=== PATIENT | male | born 2000 | race Caucasian/White ===

== ENCOUNTER 2024-06-10 00:50 | Inpatient (IN) | payer SELFPAY ==
[2024-06-10] VITALS (22 sets, daily range): BP systolic 92–156; BP diastolic 47–102; PULSE 76–140; RESP 14–40; TEMP 36–36.8; O2SAT 94–100; BMI 34.6; BMI 34.2
--- NOTE | 2024-06-10 01:00 | EDS_ITS ---
HPI History of Present Illness Chief Complaint: ETOH Intox [facility] Medical History (Updated 06/10/24 @ 01:09 by Alvina Ferguson) Depression Dyslexia ADHD Anxiety Home Medications ?Medication ?Instructions ?Recorded ?Last Taken ?Type NK 06/10/24 Unknown History Allergy/AdvReac Type Severity Reaction Status Date / Time No Known Allergies Allergy Verified 06/10/24 00:56 Social History Smoking Status: Current some day smoker tobacco type: e-cigarettes EXAM Physical Exam Const Vital Signs: 06/10/24 00:51 06/10/24 02:30 Temperature 97.8 F Temperature Source Oral Pulse Rate 126 H 140 H Respiratory Rate 40 H 19 H Blood Pressure 156/98 H 126/64 H Blood Pressure Mean 117 84 Pulse Ox 96 94 Oxygen Delivery Method Room Air Room Air [facility] MDM Narrative Medical decision making narrative: HISTORY OF PRESENT ILLNESS: 24-year-old male presents after being agitated at a wedding. The patient is intoxicated at bilateral history but does note right ankle pain. Denies any chest pain to me. Denies any focal weakness. When asked about drugs he does not answer clearly. He starts becoming emotional and crying about not letting his son down. He denies any suicidal ideation, homicidal ideation, auditory visual hallucinations. REVIEW OF SYSTEMS: Pertinent positives: Ankle pain Pertinent negatives: Chest pain, auditory visual hallucinations, suicidal ideation, homicidal ideation PHYSICAL EXAM: Nursing triage notes reviewed, Vital signs reviewed Constitutional: please see mdm HENT: MMM Eyes: Pupils equal round and reactive to light, Extraocular muscles intact Neck: No stridor, no JVD, full neck ROM Lungs: Clear to auscultation, No wheezing or rales. No increased work of breathing, no conversational dyspnea, no accessory muscle use, no nasal flaring. No respiratory distress noted Heart: Regular rate and rhythm, No murmurs, No rubs and No gallops, 2+ distal pulses (radial, femoral, posterior tibial) in all extremities Abdomen: Soft, there is no tenderness, rigidity, rebound or guarding, no obvious peritoneal signs, no palpable pulsatile abdominal masses, no auscultated abdominal bruit : No CVAT Extremities: No edema Neuro: Clearly intoxicated, alert, oriented to person but not place (unknown baseline). No focal neurological deficits, cranial nerves II through XII intact, 5/5 strength in all extremities. Intact sensation to light touch in all extremities, 2+ reflexes bilateral patella tendons. Normal gait. No ataxia. Skin: No rash or lesions noted MEDICAL DECISION MAKING: Chief Complaint: Intoxication External records reviewed: No records in [facility] Records Management Factors affecting care: Per mother's history who lives in [place] patient has history of anxiety, ADHD Social determinants of health: Substance use History obtained from others: EMS Consults: Internal medicine (Dr. Brennan) MDM Narrative: Patient was initially hypertensive, tachycardic, tachypneic, afebrile. Exam without focal cardiopulmonary abnormalities. No signs of infection. Patient appeared clinically intoxicated making nonsensical statements with intermittent agitation and pulling at medical devices. No signs of trauma to the head. Patient was altered however. I considered the following differential diagnosis: ICH, arrhythmia, electrolyte disturbance, metabolic issues, substance abuse, alcohol intoxication Patient was initially agitated, uncooperative, pulling at medical devices despite attempted redirection and required IV Ativan and Geodon for agitation treatment. Given change in mental status, intoxication I obtained a CT scan of the brain. ALL IMAGES (IF OBTAINED) HAVE BEEN PERSONALLY REVIEWED AND INTERPRETED BY MYSELF. CBC without leukocytosis, severe anemia, no thrombocytopenia. Alcohol level 222 nearly 3 times legal limit, will continue to monitor for sobriety BMP concerning for hyperglycemia, metabolic acidosis elevated anion gap concerning for DKA, noted mild hypokalemia, no AYAAN (given these findings I gave the patient IV potassium, 10 units of IV insulin and will repeat a BMP in 1 hour) VBG with metabolic acidosis with a bicarb of 16 essentially consistent with DKA as well Urine tox screen negative for stimulant intoxication Repeat BMP showed continued metabolic acidosis however anion gap cleared. Concern still for DKA given hyperglycemia. Will start insulin drip and admit to the ICU. Given persistent metabolic acidosis and concern for new onset diabetes and DKA patient was started insulin drip and admitted to the intensive care unit. Discussed with hospitalist Dr. Brennan who agreed. The patient and/or family, caregivers express understanding. The patient and/or family, caregivers agrees with the plan. Shared decision making: I will have a discussion with the patient and or visitors regarding risk/benefits of further testing or admission. They will be made aware of of the risk/benefits inherent in this decision they will be given the opportunity to voice understanding. Total critical care time today provided was at least 60 minutes. This excludes separately billable procedures. Critical care time (if documented) is secondary to the patient having high probability of clinically significant/life threatening deterioration in the patient's condition which required my urgent intervention. Impression: 1. Acute intoxication 2. DKA 3. Tachycardia Dispo: Admit to ICU This note was generated with [employer] dictation software. It may contain incorrect words, spelling, and punctuation that were not noted in review of the chart prior to signing. Lab Data Labs: Laboratory Results - last 24 hr 06/10/24 06/10/24 06/10/24 01:00 01:20 02:10 WBC 7.8 RBC 6.05 Hgb 16.8 H Hct 46.6 MCV 77.0 L MCH 27.8 MCHC 36.1 H RDW Std Deviation 31.5 L RDW Coeff of Genesis 11.6 Plt Count 334 MPV 11.0 Immature Gran % (Auto) 1.000 H Neut % (Auto) 57.7 Lymph % (Auto) 34.1 [place] % (Auto) 6.0 Eos % (Auto) 0.4 Baso % (Auto) 0.8 Absolute Neuts (auto) 4.5 Absolute Lymphs (auto) 2.66 Nucleated RBC % 0 Sodium 138 Potassium 3.2 L Chloride 103 Carbon Dioxide 17.0 L Anion Gap 18 H BUN 11 Creatinine 1.27 Estim Creat Clear Calc 97.94 Est GFR (MDRD) Af Amer 89 Est GFR (MDRD) Non-Af 74 BUN/Creatinine Ratio 8.7 L Glucose 576 H* Calcium 9.1 Total Bilirubin 0.30 AST 22 ALT 64 H Alkaline Phosphatase 179 H Total Protein 7.8 Albumin 3.9 Globulin 3.9 Albumin/Globulin Ratio 1.0 Urine Opiates Screen NEGATIVE Urine Methadone Screen NEGATIVE Ur Barbiturates Screen NEGATIVE Ur Phencyclidine Scrn NEGATIVE Ur Amphetamines Screen NEGATIVE MDMA (Ecstasy) Screen NEGATIVE U Benzodiazepines Scrn NEGATIVE Urine Cocaine Screen NEGATIVE U Cannabinoids Screen NEGATIVE Ur Drug Screen Comment Ethyl Alcohol 221.0 Acetone Level NEGATIVE POC Glucose 06/10/24 06/10/24 02:22 03:04 WBC RBC Hgb Hct MCV MCH MCHC RDW Std Deviation RDW Coeff of Genesis Plt Count MPV Immature Gran % (Auto) Neut % (Auto) Lymph % (Auto) [place] % (Auto) Eos % (Auto) Baso % (Auto) Absolute Neuts (auto) Absolute Lymphs (auto) Nucleated RBC % Sodium 141 Potassium 3.5 Chloride 111 H Carbon Dioxide 17.0 L Anion Gap 13 BUN 10 Creatinine 0.85 Estim Creat Clear Calc 146.33 Est GFR (MDRD) Af Amer 143 Est GFR (MDRD) Non-Af 118 BUN/Creatinine Ratio 11.8 Glucose 383 H Calcium 7.9 L Total Bilirubin AST ALT Alkaline Phosphatase Total Protein Albumin Globulin Albumin/Globulin Ratio Urine Opiates Screen Urine Methadone Screen Ur Barbiturates Screen Ur Phencyclidine Scrn Ur Amphetamines Screen MDMA (Ecstasy) Screen U Benzodiazepines Scrn Urine Cocaine Screen U Cannabinoids Screen Ur Drug Screen Comment Ethyl Alcohol Acetone Level POC Glucose 438 H ABG Data ABG results: ABG 06/10/24 02:11 Specimen Type ADI Sample Site Not entered VBG pH 7.27 L VBG pO2 66 H VBG HCO3 16 L VBG Total CO2 17 L VBG O2 Sat (Calc) 90 H VBG Base Excess -11 L POC Mix VBG pCO2 Pt Tmp 34.4 L O2 Delivery Device Not entered Radiography Diagnostic Testing: Clinical Impression(s) from Imaging Studies Brain CT 06/10/24 01:12 IMPRESSION: No demonstrated acute intracranial process. Electronically Signed: Yeison Shook MD at 2:31 EDT , Ankle X-Ray 06/10/24 01:27 IMPRESSION: No demonstrated fracture, dislocation, or destructive osseous lesion. Electronically Signed: Yeison Shook MD at 2:44 EDT , Chest X-Ray 06/10/24 01:50 IMPRESSION: No acute findings in the chest. Electronically Signed: Yeison Shook MD at 2:42 EDT , Discharge Plan Triage Chief Complaint: ETOH Intox ED Provider: Celio Prince Dx/Rx/DC Orders Prescriptions: No Action NK Print Language: Eritrean
--- NOTE | 2024-06-10 01:12 | EKG12_ITS ---
Test Reason : DYSRHYTHMIA Blood Pressure : / mmHG Vent. Rate : 140 BPM Atrial Rate : 141 BPM P-R Int : 128 ms QRS Dur : 100 ms QT Int : 286 ms P-R-T Axes : 025 082 -08 degrees QTc Int : 436 ms Critical Test Result: High HR Sinus tachycardia Possible Inferior infarct , age undetermined Abnormal ECG Confirmed by OMAR MANN, JOCELYN ([id number]), fan mail editor JACOB OQUENDO ([id number]) on 06/11/2024 9:45:21 AM Referred By: Confirmed By:JOCELYN NELSON MD
--- NOTE | 2024-06-10 01:12 | CT_ITS ---
EXAM: CT HEAD WITHOUT INTRAVENOUS CONTRAST CLINICAL INDICATION: AMS AMS TECHNIQUE: Multiple axial images were obtained of the head without intravenous contrast. This CT exam was performed using one or more of the following dose reduction techniques: automated exposure control, adjustment of the mA and/or kV according to patient size, and/or use of iterative reconstruction technique. RADIATION DOSE: CTDIvol = 44.99 mGy, DLP = 812.98 mGy-cm COMPARISON: No relevant prior studies available. FINDINGS: BRAIN AND EXTRA-AXIAL SPACES: Unremarkable. No intra- or extra-axial hemorrhage. No evidence of acute infarct. No intracranial mass or mass effect. There is preservation of the red/white matter interface. Posterior fossa structures are unremarkable. Ventricles are appropriate for age. No hydrocephalus. Basal cisterns are patent. BONES/JOINTS: Unremarkable. No discrete lytic or blastic abnormalities. VASCULATURE: There is atherosclerotic calcification of the vertebral and cavernous carotid arteries. SINUSES: Unremarkable as visualized. Clear. MASTOID AIR CELLS: Unremarkable. Clear. ORBITS: Visualized globes, extraocular muscles, optic nerves and retrobulbar fat appear unremarkable. CT/Brain/Head without Contrast IMPRESSION: No demonstrated acute intracranial process. Electronically Signed: Yeison Shook MD at 2:31 EDT Reading Location ID and State: [facility] / [place] , Service support ,
[2024-06-10] MEDS: Ziprasidone IM 20 MG/ML VIAL IM (01:20)
[2024-06-10 01:23] LABS: Absolute Lymphocyte Count 2.66 X10^3/uL (0.83-4.51); Absolute Neutrophil Count 4.5 X10^3/uL (2.0-7.7); Basophil# 0.06 X10^3/uL; Basophil% 0.8 % (0-1); Eosinophil# 0.03 X10^3/uL; Eosinophils% 0.4 % (0-5); Hematocrit 46.6 % (40-54); Hemoglobin 16.8 g/dL (13.0-16.5); Lymphocyte # 2.66 X10^3/ul (0.83-4.51); Lymphocyte % 34.1 % (19-41); Mean Corp Hgb Conc 36.1 g/dL (32-36); Mean Corpuscular Hgb 27.8 pg (27.0-32.0); Monocyte# 0.47 X10^3/uL; NRBC Flagged by Analyzer 0 % (0-5); Neutrophil % 57.7 % (47-70); Platelet Count 334 K/mm3 (150-450); RBC Distribution Width CV 11.6 % (11.6-14.6); RBC Distribution Width SD 31.5 fl (35.1-43.9); Red Blood Count 6.05 M/mm3 (4.6-6.2); White Blood Count 7.8 K/mm3 (4.4-11.0)
[2024-06-10] MEDS: 0.9% Normal Saline (1000mL) 1,000 ML 1000 ML IV (01:25)
[2024-06-10] MEDS: LORazepam 2 MG/ML Syringe IV (01:25)
--- NOTE | 2024-06-10 01:27 | RAD_ITS ---
EXAM: XR RIGHT ANKLE, 2 VIEWS CLINICAL INDICATION: pain pain TECHNIQUE: Frontal and lateral views of the right ankle. COMPARISON: No relevant prior studies available. FINDINGS: BONES/JOINTS: Unremarkable. No acute fracture. No subluxation. Normal alignment. Preservation of the joint space. No sclerotic or destructive changes observed. SOFT TISSUES: There is nonspecific soft tissue swelling. No radiopaque foreign body. RAD/Ankle 2 Views IMPRESSION: No demonstrated fracture, dislocation, or destructive osseous lesion. Electronically Signed: Yeison Shook MD at 2:44 EDT ,
[2024-06-10 01:43] LABS: AST(SGOT) 22 U/L (15-37); Alanine Aminotransfer ALT/SGPT 64 U/L (16-61); Albumin, Serum 3.9 g/dL (3.2-5.0); Alkaline Phosphatase 179 U/L (45-117); Anion Gap 18 (5-15); BUN 11 mg/dL (7-18); BUN/Creat Ratio 8.7 RATIO (10-20); Calcium,Total 9.1 mg/dL (8.5-10.1); Chloride 103 mmol/L (98-107); Creatinine, Serum 1.27 mg/dL (0.70-1.30); EST Glomerular Filtration Rate 74 mL/min (>60); Est Glom Filt Rate - Afr Amer 89 mL/min (>60); Estimated Creatinine Clearance 97.94 ml/min; Globulin 3.9 g/dL (2.2-4.2); Glucose 576 mg/dL (74-106); Potassium 3.2 mmol/L (3.5-5.1); Protein, Total 7.8 g/dL (6.4-8.2); Sodium Level 138 mmol/L (136-145)
--- NOTE | 2024-06-10 01:50 | RAD_ITS ---
EXAM: XR CHEST, 1 VIEW CLINICAL INDICATION: AMS AMS TECHNIQUE: Frontal view of the chest. COMPARISON: No relevant prior studies available. FINDINGS: LUNGS AND PLEURAL SPACES: Lungs are underexpanded. There is no demonstrated pulmonary infiltrate. No pneumothorax. No effusion. HEART: Unremarkable. Cardiac silhouette not enlarged. MEDIASTINUM: Central airways and mediastinal contour are unremarkable. BONES/JOINTS: Unremarkable. No acute fracture. SOFT TISSUES: Unremarkable. RAD/Chest 1 View (Portable) IMPRESSION: No acute findings in the chest. Electronically Signed: Yeison Shook MD at 2:42 EDT Reading Location ID and State: [facility] / [place] , Service support ,
[2024-06-10 01:53] LABS: Amphetamine Urine NEGATIVE (<1000 ng/mL); Barbiturate Urine NEGATIVE (< 200 ng/mL); Benzodiazepine Urine NEGATIVE (< 200 ng/mL); Cocaine Urine NEGATIVE (< 300 ng/mL); Ecstacy Urine NEGATIVE (< 500 ng/mL); Methadone Urine NEGATIVE (< 300 ng/mL); Opiates Urine NEGATIVE (< 300 ng/mL); PCP Urine NEGATIVE (< 25 ng/mL); THC Urine NEGATIVE (< 50 ng/mL); Vista UDS pH Range 5
[2024-06-10] MEDS: 0.9% Normal Saline (1000mL) 1,000 ML 999 ML IV ×3 (02:08→05:00)
[2024-06-10] MEDS: Potassium Chloride 10mEq/100mL 10 MEQ/100 ML IV.SOLN. 100 MEQ IV BOLUS ×2 (02:13→03:18)
[2024-06-10 02:16] LABS: Blood Gas Specimen Type VEN; O2 Delivery Device Not entered; SITE Not entered; VBG BASE EXCESS -11 mmol/L (-1.0-3.5); VBG Bicarbonate 16 mmol/L (22-26); VBG PO2 66 mmHg (25-40); VBG SO2 90 % (50-70); VBG TCO2 17 mmol/L (23-33); VBG pCO2 34.4 mmHg (41-51); VBG pH 7.27 (7.32-7.42)
[2024-06-10 02:43] LABS: Bedside Glucose 438 mg/dL (74-106)
[2024-06-10 03:25] LABS: Anion Gap 13 (5-15); BUN 10 mg/dL (7-18); BUN/Creat Ratio 11.8 RATIO (10-20); Calcium,Total 7.9 mg/dL (8.5-10.1); Chloride 111 mmol/L (98-107); Creatinine, Serum 0.85 mg/dL (0.70-1.30); EST Glomerular Filtration Rate 118 mL/min (>60); Est Glom Filt Rate - Afr Amer 143 mL/min (>60); Estimated Creatinine Clearance 146.33 ml/min; Glucose 383 mg/dL (74-106); Potassium 3.5 mmol/L (3.5-5.1); Sodium Level 141 mmol/L (136-145)
--- NOTE | 2024-06-10 03:29 | ED.RN ---
Spoke to pt's mother via phone call to update on pt's status. Questions/concerns answered
[2024-06-10 03:53] LABS: Bacteria 0 SEEN /hpf (None Seen); Mucous, Urine 0 SEEN /hpf (<or=2+); Red Blood Cells-Urine 0 SEEN /hpf (0-5); White Blood Cells 0 SEEN /hpf (0-5)
--- NOTE | 2024-06-10 03:53 | PCM.HP.STD ---
HPI - General General Date of Admission: 06/10/24 Date of Service: 06/10/24 Chief Complaint: Agitation. HPI Narrative The patient is a 24 y/o M w/ PMHx: Anxiety and Depression/ADHD, Nicotine Vaping use, Possible EtOH abuse but uncertain who presents to the [facility] ED on 06/10/24 with history of being extremely agitated at a wedding with concern for severe intoxication at that point and potential drug use however patient upon initial ED arrival reportedly denied but was extremely labile of mood eventually requiring significant sedation with Ativan and Geodon secondary to severe agitation. Workup in the ED included CBC with WC 7.8, human 16.8, platelet 334 with increased immature granulocytes, VBG with pH 7.27, pO2 66, bicarb 16, CMP with potassium 3.2, carbon oxide 17, anion gap 18, glucose 576, AST/ALT 22/64, alk phos 179 with now repeat BMP with chloride 111, carbon oxide 17, anion gap 13, glucose 383, calcium 7.9, CT of the brain with no acute intracranial finding, chest x-ray with no acute cardiopulmonary findings, plain film of the right ankle with no acute fracture, dislocation or destructive osseous lesion. In the ED patient ministered 2 L normal saline, insulin 10 units IV x 1, transition to an insulin drip, Ativan 2 mg IV x 1, Geodon 20 mg IM x 1, potassium supplementation as well as Zofran 4 mg IV x 1. [facility] Medical History Depression Dyslexia ADHD Anxiety Home Medications ?Medication ?Instructions ?Recorded ?Last Taken ?Type NK 06/10/24 Unknown History Allergy/AdvReac Type Severity Reaction Status Date / Time No Known Allergies Allergy Verified 06/10/24 00:56 Family History unable to obtain unable to obtain Surgical History unable to obtain unable to obtain Social History Smoking Status: Current some day smoker tobacco type: e-cigarettes ROS Review of Systems ROS Unobtainable: due to encephalopathy Vital Signs Vital Signs Vital Signs: 06/10/24 00:51 06/10/24 02:30 Temperature 97.8 F Temperature Source Oral Pulse Rate 126 H 140 H Respiratory Rate 40 H 19 H Blood Pressure 156/98 H 126/64 H Blood Pressure Mean 117 84 Pulse Ox 96 94 Oxygen Delivery Method Room Air Room Air Weight Weight: 214 lb 8.156 oz Body Mass Index (BMI) 34.6 Physical Exam Narrative Physical Examination: General: Patient sedated, awake and somewhat to stimuli but falls back asleep, not alert, not oriented, laying in the ED bed. Skin: Normal color, normal turgor, no icterus, no cyanosis. HEENT: AT/NC, EOM unable to be assessed well given sedation, PERRLA, significantly dry MM, no carotid bruits or JVD noted. Lungs: Diminished, greater bases, mildly increased respiratory rate but no distress, no rales, ronchi or wheezing. Heart: Remains mildly tachycardic with regular rhythm; no gallop, rub audible. Abdomen: Soft, no grimacing with palpation, no marked distention evident, mildly hyperactive bowel sounds, no appreciated HSM., Extremities: No cyanosis, clubbing, or edema. Neurological: Patient sedated, awake and somewhat to stimuli but falls back asleep, not alert, not oriented, laying in the ED bed, cognitive function not baseline intact; pupils equally reactive to light and accommodation, cranial nerves difficult to assess given sedated status, moving extremities spontaneously, strength severely globally decreased given acute presentation but also recent sedated medication. Psychiatric: Affect appears lethargic status post recent sedated medication, does have underlying history of anxiety and depression and was noted to be emotionally labile initially upon ED arrival. Results Lab / Micro Data 06/10/24 01:00 06/10/24 03:04 Labs: Laboratory Results - last 24 hr 06/10/24 01:00: WBC 7.8, RBC 6.05, Hgb 16.8 H, Hct 46.6, MCV 77.0 L, MCH 27.8, MCHC 36.1 H, RDW Std Deviation 31.5 L, RDW Coeff of Genesis 11.6, Plt Count 334, MPV 11.0, Immature Gran % (Auto) 1.000 H, Neut % (Auto) 57.7, Lymph % (Auto) 34.1, [place] % (Auto) 6.0, Eos % (Auto) 0.4, Baso % (Auto) 0.8, Absolute Neuts (auto) 4.5, Absolute Lymphs (auto) 2.66, Nucleated RBC % 0, Sodium 138, Potassium 3.2 L, Chloride 103, Carbon Dioxide 17.0 L, Anion Gap 18 H, BUN 11, Creatinine 1.27, Estim Creat Clear Calc 97.94, Est GFR (MDRD) Af Amer 89, Est GFR (MDRD) Non-Af 74, BUN/Creatinine Ratio 8.7 L, Glucose 576 H*, Calcium 9.1, Total Bilirubin 0.30, AST 22, ALT 64 H, Alkaline Phosphatase 179 H, Total Protein 7.8, Albumin 3.9, Globulin 3.9, Albumin/Globulin Ratio 1.0, Ethyl Alcohol 221.0 06/10/24 01:20: Urine Opiates Screen NEGATIVE, Urine Methadone Screen NEGATIVE, Ur Barbiturates Screen NEGATIVE, Ur Phencyclidine Scrn NEGATIVE, Ur Amphetamines Screen NEGATIVE, MDMA (Ecstasy) Screen NEGATIVE, U Benzodiazepines Scrn NEGATIVE, Urine Cocaine Screen NEGATIVE, U Cannabinoids Screen NEGATIVE, Ur Drug Screen Comment 06/10/24 02:10: Acetone Level NEGATIVE 06/10/24 02:22: POC Glucose 438 H 06/10/24 03:04: Sodium 141, Potassium 3.5, Chloride 111 H, Carbon Dioxide 17.0 L, Anion Gap 13, BUN 10, Creatinine 0.85, Estim Creat Clear Calc 146.33, Est GFR (MDRD) Af Amer 143, Est GFR (MDRD) Non-Af 118, BUN/Creatinine Ratio 11.8, Glucose 383 H, Calcium 7.9 L ABG Data ABG results: ABG 06/10/24 02:11 Specimen Type ADI Sample Site Not entered VBG pH 7.27 L VBG pO2 66 H VBG HCO3 16 L VBG Total CO2 17 L VBG O2 Sat (Calc) 90 H VBG Base Excess -11 L POC Mix VBG pCO2 Pt Tmp 34.4 L O2 Delivery Device Not entered Imaging Radiology Impression Brain CT 06/10/24 01:12 IMPRESSION: No demonstrated acute intracranial process. Electronically Signed: Yeison Shook MD at 2:31 EDT , Ankle X-Ray 06/10/24 01:27 IMPRESSION: No demonstrated fracture, dislocation, or destructive osseous lesion. Electronically Signed: Yeison Shook MD at 2:44 EDT , Chest X-Ray 06/10/24 01:50 IMPRESSION: No acute findings in the chest. Electronically Signed: Yeison Shook MD at 2:42 EDT , Assessment & Plan Assessment/Plan (1) Hyperglycemia: PLAN: Plan The patient is a 24 y/o M w/ PMHx: Anxiety and Depression/ADHD, Nicotine Vaping use, Possible EtOH abuse but uncertain who presents to the [facility] ED on 06/10/24 with history of being extremely agitated at a wedding with concern for severe intoxication at that point and potential drug use however patient upon initial ED arrival reportedly denied but was extremely labile of mood eventually requiring significant sedation with Ativan and Geodon secondary to severe agitation. #1. Significant hyperglycemia with anion gap in the setting of significant Acute EtOH Intoxication, Acetone negative, Possible Alcoholic mediated versus HHS with new onset DM but uncertain: Will admit to ICU in order to continue on insulin drip, check serial K+, glucose w/ IVF changes pending these levels, serial chemistry, obtain mag, phos daily w/ repletion as needed, will obtain serum osmolality, when gap closed x > 2 serial repeat BMP assessments will de-escalate off drip. HgbA1c requested. Await HgbA1c level and if consistent with new onset DM then would additionally obtain nutrition consultation and would also consider obtaining ICA, GAD65, IA-2 to identify if autoimmune mediated diabetes mellitus type I. Will initiate also ICU electrolyte protocol for supplementation. #2. Acute alcohol intoxication: Alcohol initial level 221, will continue aggressive hydration given also concurrent #1, once patient is sober and more able to talk case management/social work consulted and may discuss possible substance abuse. Magnesium and phosphorus levels requested. #3. Anxiety and depression/ADHD with severe agitation, psychosis: Patient currently sedated status post Geodon and Ativan in the ED, unable to determine other exact medical history and from current list does not appear to be on medication, UDS unremarkable, alcohol level as noted significantly elevated. Case management consulted. #4. GI/DVT prophylaxis: Will maintain on IV PPI until clinically improving/Lovenox. Charges/Coding Visit Charges Inpatient E&M: 14444 Init Hosp L3
[2024-06-10 03:54] LABS: Color, Urine Straw (Yellow); Glucose, Dipstick 1000 mg/dl (Normal); Ketone-Dipstick 50 mg/dl (Negative); Leukocyte Esterase-Dipstick Negative /ul (Negative); Nitrite-Dipstick Negative (Negative); Occult Blood-Urine Negative /ul (Negative); Protein-Dipstick Negative (Negative); Urine Bilirubin Dipstick Negative (Negative); Urine Clarity Clear (Clear); Urine Urobilinogen Normal (Normal)
[2024-06-10 04:18] LABS: Magnesium 1.8 mg/dL (1.6-2.6); Phosphorus 2.1 mg/dL (2.5-4.9)
[2024-06-10] MEDS: Ondansetron 4 MG/2 ML Vial IV (04:19)
[2024-06-10 04:22] LABS: Squamous Epithelial Cells - UA 0-5 SEEN /hpf (0-5)
[2024-06-10] MEDS: Insulin Lispro 100 UNIT in 0.9% Normal Saline (100mL Bag) 99 ML 9.7 UNIT CONT INF (04:30)
[2024-06-10 04:41] LABS: Osmolality, Serum 356 mOsm/KG (275-295)
--- NOTE | 2024-06-10 04:50 | ED.RN ---
Report gave to Melanie CORLEY questions/concerns answered
[2024-06-10 04:54] LABS: Bedside Glucose 331 mg/dL (74-106)
[2024-06-10] MEDS: Pantoprazole Sodium 40 MG in 0.9% Normal Saline (100mL MB+) 100 ML 330 MG IV (05:31)
[2024-06-10] MEDS: 0.9% Normal Saline (1000mL) 1,000 ML 150 ML IV (05:32)
[2024-06-10] MEDS: Insulin Lispro 100 UNIT in 0.9% Normal Saline (100mL Bag) 99 ML 5.7 UNIT CONT INF (06:14)
[2024-06-10 07:28] LABS: Bedside Glucose 255 mg/dL (74-106)
[2024-06-10 07:28] LABS: Bedside Glucose 278 mg/dL (74-106)
[2024-06-10 08:23] LABS: Absolute Lymphocyte Count 2.05 X10^3/uL (0.83-4.51); Absolute Neutrophil Count 4.9 X10^3/uL (2.0-7.7); Basophil# 0.05 X10^3/uL; Basophil% 0.7 % (0-1); Eosinophil# 0.03 X10^3/uL; Eosinophils% 0.4 % (0-5); Hematocrit 38.6 % (40-54); Hemoglobin 13.8 g/dL (13.0-16.5); Lymphocyte # 2.05 X10^3/ul (0.83-4.51); Mean Corp Hgb Conc 35.8 g/dL (32-36); Mean Corpuscular Hgb 28.1 pg (27.0-32.0); Mean Corpuscular Volume 78.6 fL (80-94); Mean Platelet Vol. 10.4 fl (6.2-12.0); Monocyte# 0.52 X10^3/uL; Monocyte% 6.8 % (0-10); NRBC Flagged by Analyzer 0 % (0-5); Neutrophil # 4.88 X10^3/uL (2.7-7.7); Neutrophil % 64.2 % (47-70); Platelet Count 254 K/mm3 (150-450); RBC Distribution Width CV 11.9 % (11.6-14.6); RBC Distribution Width SD 33.7 fl (35.1-43.9); Red Blood Count 4.91 M/mm3 (4.6-6.2); White Blood Count 7.6 K/mm3 (4.4-11.0)
[2024-06-10 08:29] LABS: Bedside Glucose 221 mg/dL (74-106)
[2024-06-10 08:40] LABS: Anion Gap 9 (5-15); BUN 8 mg/dL (7-18); BUN/Creat Ratio 11.4 RATIO (10-20); Calcium,Total 7.4 mg/dL (8.5-10.1); Chloride 118 mmol/L (98-107); EST Glomerular Filtration Rate 146 mL/min (>60); Est Glom Filt Rate - Afr Amer 177 mL/min (>60); Estimated Creatinine Clearance 176.67 ml/min; Glucose 249 mg/dL (74-106); Potassium 3.4 mmol/L (3.5-5.1); Sodium Level 147 mmol/L (136-145)
[2024-06-10 09:19] LABS: Bedside Glucose 209 mg/dL (74-106)
[2024-06-10 09:27] LABS: Hemoglobin A1c 12.8 % (3.8-5.6)
[2024-06-10] MEDS: Insulin Glargine-YFGN 100 UNIT/ML Pen 10 UNIT SC (10:10)
[2024-06-10] MEDS: Potassium Chloride 40 MEQ in Dextrose 5%-Water (1000mL Bag) 1,000 ML 125 MEQ IV (10:11)
[2024-06-10] MEDS: Enoxaparin 40 MG/0.4 ML Syringe SC (10:13)
[2024-06-10 10:37] LABS: Bedside Glucose 175 mg/dL (74-106)
[2024-06-10 12:18] LABS: Bedside Glucose 233 mg/dL (74-106)
--- NOTE | 2024-06-10 12:25 | PCM.HOSP.N ---
Hospitalist Note 24-year-old gentleman admitted with hyperglycemia with increased anion gap metabolic acidosis with significant acute alcohol intoxication therefore unclear whether increased anion gap from alcohol intoxication, or DKA. Patient did not know that he has diabetes mellitus but A1c came high 12.8. Anion gap closed x 2. Lantus and Humalog insulin ordered and to overlap with 4 hours of IV insulin drip. IV fluid adjusted to D5 plus KCl when glucose was less than 250. Patient is well-hydrated and is +5 L balance. When insulin drip is complete patient is transferred to Medr floor. Patient will need prescription for Lantus and Humalog insulin along with glucometer and supplies for Accu-Cheks at the time of discharge. Laboratory Results 06/10/24 01:00: WBC 7.8, RBC 6.05, Hgb 16.8 H, Hct 46.6, MCV 77.0 L, MCH 27.8, MCHC 36.1 H, RDW Std Deviation 31.5 L, RDW Coeff of Genesis 11.6, Plt Count 334, MPV 11.0, Immature Gran % (Auto) 1.000 H, Neut % (Auto) 57.7, Lymph % (Auto) 34.1, [place] % (Auto) 6.0, Eos % (Auto) 0.4, Baso % (Auto) 0.8, Absolute Neuts (auto) 4.5, Absolute Lymphs (auto) 2.66, Nucleated RBC % 0, Sodium 138, Potassium 3.2 L, Chloride 103, Carbon Dioxide 17.0 L, Anion Gap 18 H, BUN 11, Creatinine 1.27, Estim Creat Clear Calc 97.94, Est GFR (MDRD) Af Amer 89, Est GFR (MDRD) Non-Af 74, BUN/Creatinine Ratio 8.7 L, Glucose 576 H*, Calcium 9.1, Total Bilirubin 0.30, AST 22, ALT 64 H, Alkaline Phosphatase 179 H, Total Protein 7.8, Albumin 3.9, Globulin 3.9, Albumin/Globulin Ratio 1.0, Ethyl Alcohol 221.0 06/10/24 01:20: Urine Opiates Screen NEGATIVE, Urine Methadone Screen NEGATIVE, Ur Barbiturates Screen NEGATIVE, Ur Phencyclidine Scrn NEGATIVE, Ur Amphetamines Screen NEGATIVE, MDMA (Ecstasy) Screen NEGATIVE, U Benzodiazepines Scrn NEGATIVE, Urine Cocaine Screen NEGATIVE, U Cannabinoids Screen NEGATIVE, Ur Drug Screen Comment 06/10/24 02:10: Serum Osmolality 356 H, Acetone Level NEGATIVE 06/10/24 02:11: Specimen Type ADI, Sample Site Not entered, VBG pH 7.27 L, VBG pO2 66 H, VBG HCO3 16 L, VBG Total CO2 17 L, VBG O2 Sat (Calc) 90 H, VBG Base Excess -11 L, POC Mix VBG pCO2 Pt Tmp 34.4 L, O2 Delivery Device Not entered 06/10/24 02:20: Urine Color Straw, Urine Clarity Clear, Urine pH 6.0, Ur Specific [place] 1.010, Urine Protein Negative, Urine Glucose (UA) 1000 H, Urine Ketones 50 H, Urine Occult Blood Negative, Urine Nitrite Negative, Urine Bilirubin Negative, Urine Urobilinogen Normal, Ur Leukocyte Esterase Negative, Urine RBC 0 SEEN, Urine WBC 0 SEEN, Ur Squamous Epith Cells 0-5 SEEN, Urine Bacteria 0 SEEN, Urine Mucus 0 SEEN 06/10/24 02:22: POC Glucose 438 H 06/10/24 03:04: Sodium 141, Potassium 3.5, Chloride 111 H, Carbon Dioxide 17.0 L, Anion Gap 13, BUN 10, Creatinine 0.85, Estim Creat Clear Calc 146.33, Est GFR (MDRD) Af Amer 143, Est GFR (MDRD) Non-Af 118, BUN/Creatinine Ratio 11.8, Glucose 383 H, Calcium 7.9 L, Phosphorus 2.1 L, Magnesium 1.8 06/10/24 04:25: POC Glucose 331 H 06/10/24 05:13: POC Glucose 278 H 06/10/24 06:39: POC Glucose 255 H 06/10/24 08:05: WBC 7.6, RBC 4.91, Hgb 13.8, Hct 38.6 L, MCV 78.6 L, MCH 28.1, MCHC 35.8, RDW Std Deviation 33.7 L, RDW Coeff of Genesis 11.9, Plt Count 254, MPV 10.4, Immature Gran % (Auto) 0.900, Neut % (Auto) 64.2, Lymph % (Auto) 27.0, [place] % (Auto) 6.8, Eos % (Auto) 0.4, Baso % (Auto) 0.7, Absolute Neuts (auto) 4.9, Absolute Lymphs (auto) 2.05, Nucleated RBC % 0, Sodium 147 H, Potassium 3.4 L, Chloride 118 H, Carbon Dioxide 20.0 L, Anion Gap 9, BUN 8, Creatinine 0.70, Estim Creat Clear Calc 176.67, Est GFR (MDRD) Af Amer 177, Est GFR (MDRD) Non-Af 146, BUN/Creatinine Ratio 11.4, Glucose 249 H, Hemoglobin A1c 12.8 H, Calcium 7.4 L 06/10/24 08:10: POC Glucose 221 H 06/10/24 09:01: POC Glucose 209 H 06/10/24 10:09: POC Glucose 175 H 06/10/24 11:57: POC Glucose 233 H Clinical Impression(s) from Imaging Studies Brain CT 06/10/24 01:12 IMPRESSION: No demonstrated acute intracranial process. Electronically Signed: Yeison Shook MD at 2:31 EDT , Ankle X-Ray 06/10/24 01:27 IMPRESSION: No demonstrated fracture, dislocation, or destructive osseous lesion. Electronically Signed: Yeison Shook MD at 2:44 EDT , Chest X-Ray 06/10/24 01:50 IMPRESSION: No acute findings in the chest. Electronically Signed: Yeison Shook MD at 2:42 EDT ,
--- NOTE | 2024-06-10 13:00 | NURSING ---
report called to med-surg3 , transferred per wheelchair with belongings to room 318, pt notified his mother of new room number
[2024-06-10] MEDS: Insulin Lispro 100 UNIT/ML INSULN.PEN SC ×3 (16:38→22:27)
[2024-06-10 16:50] LABS: Bedside Glucose 270 mg/dL (74-106)
[2024-06-10 21:28] LABS: Anion Gap 5 (5-15); BUN 12 mg/dL (7-18); BUN/Creat Ratio 12.9 RATIO (10-20); Chloride 109 mmol/L (98-107); Creatinine, Serum 0.93 mg/dL (0.70-1.30); EST Glomerular Filtration Rate 106 mL/min (>60); Est Glom Filt Rate - Afr Amer 129 mL/min (>60); Estimated Creatinine Clearance 132.98 ml/min; Glucose 368 mg/dL (74-106); Potassium 3.6 mmol/L (3.5-5.1); Sodium Level 139 mmol/L (136-145)
[2024-06-10] MEDS: Pantoprazole Sodium 40 MG in 0.9% Normal Saline (100mL MB+) 100 ML 110 MG IV (22:27)
[2024-06-11 02:53] VITALS: BMI 34.0
[2024-06-11 03:00] VITALS: BP 108/76; PULSE 59; RESP 18; TEMP 36.8; O2SAT 100
[2024-06-11 06:31] LABS: Anion Gap 7 (5-15); BUN 11 mg/dL (7-18); BUN/Creat Ratio 17.9 RATIO (10-20); Calcium,Total 7.9 mg/dL (8.5-10.1); Chloride 107 mmol/L (98-107); Creatinine, Serum 0.62 mg/dL (0.70-1.30); EST Glomerular Filtration Rate 171 mL/min (>60); Est Glom Filt Rate - Afr Amer 206 mL/min (>60); Estimated Creatinine Clearance 199.47 ml/min; Glucose 307 mg/dL (74-106); Potassium 3.5 mmol/L (3.5-5.1); Sodium Level 136 mmol/L (136-145)
[2024-06-11 07:13] VITALS: O2SAT 98
[2024-06-11] MEDS: Insulin Lispro 100 UNIT/ML INSULN.PEN SC ×4 (08:26→11:13)
[2024-06-11 09:00] VITALS: BP 149/98; PULSE 80; RESP 18; TEMP 36.6; O2SAT 100
--- NOTE | 2024-06-11 10:45 | CASEMGMT ---
BARNEY AMBROCIO Assessment: Face to Face with pt for initial transition planning/care coordination assessment. RN CRISTÓBAL introduced self and role at [facility], pt voices understanding and consents to assessment. Pt is A&O x4 and answers all questions appropriately at this time. Care providers, pharmacy, and demographics verified/updated. Strata: 1 Admitting Dx: Hyperglycemia PCP: No PCP, pt states mom has a doctor for pt to call and follow up with once returns to [place]. Specialists: Denies Preferred Pharmacy: [facility] [place]. Insurance: Pt has out of state Ins. and states will need to submit invoice through insurance once hospital mails it to him. Prescription Benefit: yes LNOK: Luis Enrique Toledo Living Arrangements: Pt lives with his 2 kids at home. The kids are currently staying with patient's sister. ADLs: Pt reports I with ADLs and IADLs . Transportation: Pt drives self and denies concerns with transportation. DME: Denies HHC/SNF: Denies Hx of. Pt states no concerns with going home at time of dc. Pt states no further concerns/needs. CM to follow. Advised pt to ask CM if any further question/concerns/needs arise, voices understanding. Pt Goal: Home Plan: Home, CM to follow plan of care. Bebo CORLEY CM
[2024-06-11] MEDS: Insulin Glargine-YFGN 100 UNIT/ML Pen 10 UNIT SC (10:57)
[2024-06-11] MEDS: Enoxaparin 40 MG/0.4 ML Syringe SC (10:58)
[2024-06-11 11:32] LABS: Bedside Glucose 219 mg/dL (74-106)
--- NOTE | 2024-06-11 11:56 | CASEMGMT ---
Rx for BGM and supplies signed by Dr. Cash. Rx given to pt at this time and advised the pt to bring this to his pharmacy of choice. Pt states understanding and denies further questions or concerns.
--- NOTE | 2024-06-11 12:42 | DCINST_ITS ---
Discharge Instructions Diet Discharge Diet: Carb Control Diet Activity Discharge Activity: Return to Normal Activity Follow Up Care Test Results: Test results from this visit will be discussed in further detail at your follow- up appointment, if applicable. Discharge Plan Admission Admit Date/Time: 06/10/24 03:47 Primary Reason for Your Visit: Elevated glucose and agitation Attending Provider: Munira Cash Primary Care Provider: Care Physician,No Primary Consulting Providers: Amberly Brennan; Chintan Brito Instructions Patient Instructions: Diabetes and Drinking Alcohol, Blood Sugar Check Steps, Diabetes and Sensitive Topics Additional Instructions / Restrictions: DISCHARGE INSTRUCTIONS PLEASE READ *Please take this with you to your next doctors appointment* -You will use 10 units of long-acting insulin glargine daily -You will use sliding scale short acting insulin with meals and at bedtime -Sliding scale as follows: 150-209 = 3 units 210-259 = 6 units 260-324 = 9 units 325-374 = 12 units 375-409 = 14 units 410-449 = 16 units Greater than 449 please call your physician -It is advised you refrain from using alcohol or any other substances -Please call your primary care provider's office upon discharge to schedule a hospital follow up within 1 week. -For any concerning signs or symptoms please call 911 or proceed to the nearest emergency department Discharge Orders/Prescriptions Prescriptions: New insulin glargine-yfgn 100 unit/mL (3 mL) Insulin Pen 10 unit subcut DAILY 30 Days Qty: 15 0RF insulin lispro [Humalog KwikPen Insulin] 100 unit/mL Insulin Pen See Protocol subcut ACHS Qty: 15 0RF Protocol: 5. Sliding Scale Insulin High Dosing Condition: 150-209 mg/dl = 3 units Condition: 210-259 mg/dl = 6 units Condition: 260-324 mg/dl = 9 units Condition: 325-374 mg/dl = 12 units Condition: 375-409 mg/dl = 14 units Condition: 410-449 mg/dl = 16 units Condition: Greater than 449 call physician Protocol Text: Suggested for: - Patients on Total Daily Insulin Dose of 81-120 units - Very insulin resistant patients HIGH DOSING ALGORITHM Referrals / Follow Up: Care Physician,No Primary [Primary Care Provider] - (You indicated you will be following on Tuesday with a physician in [place], will be important to keep this appointment) Disposition Disposition (needs filled in before D/C Order can be placed): Home, Self Care
--- NOTE | 2024-06-11 12:50 | DS.PCM_ITS ---
Providers Date of Admission: 06/10/24 Date of Discharge: 06/11/24 Primary Care Physician: No Primary Care Phys Reason For Visit: HYPERGLYCEMIA Diagnosis Discharge Diagnosis (1) Hyperglycemia: Status: Acute Code(s): R73.9 - Hyperglycemia, unspecified (2) Diabetes mellitus, type 2: Status: Acute Code(s): E11.9 - Type 2 diabetes mellitus without complications Medications at Discharge Home Medications insulin glargine-yfgn 100 unit/mL (3 mL) subcutaneous pen 10 unit (0.1 mL) subcut DAILY 30 days #15 mL 06/11/24 insulin lispro 100 unit/mL subcutaneous pen (Humalog KwikPen (U-100) Insulin) See Protocol subcut ACHS #15 mL 06/11/24 Hospital Course Summary of Care Provided Minutes Spent on Discharge: 25 Hospital Course: 24-year-old male history of anxiety and depression, nicotine vaping from [place] appear for a wedding who presented to [facility] ED 06/09/2024 due to extreme agitation and severe intoxication. He was found to have bicarb of 16, anion gap of 18 and glucose of 576. He was given 2 L normal saline, 10 units of IV insulin with transition insulin drip and was given Ativan and Geodon due to his agitation. Mental status improved patient transition from insulin drip to short and long-acting insulin. A1c was 12.8 and gap closed x 2. Patient agreeable to insulin injection on discharge, discussed with patient and his family. He reports feeling much better and he has no new or acute complaints. Discharged with family in stable condition, they will be traveling back to [place] so physical prescription for diabetes supplies and insulin given so can be filled per their preference Physical Exam Narrative General: Alert, oriented, no apparent distress HEENT: Atraumatic, normocephalic Eyes: extraocular movements grossly intact Neck: Supple Respiratory: normal respiratory effort Cardiovascular: no edema appreciated GI: nondistended Extremities: Moving all extremities Neuro: No overt focal neurological deficits Psych: Anxious, intermittently cooperative Weight / BMI Weight Weight: 96.2 kg Body Mass Index (BMI) 34.0 ABG / Lab / Microbiology Data 06/10/24 08:05 06/11/24 05:50 Laboratory: Laboratory Results - last 24 hr 06/10/24 16:32: POC Glucose 270 H 06/10/24 20:23: Sodium 139, Potassium 3.6, Chloride 109 H, Carbon Dioxide 25.0, Anion Gap 5, BUN 12, Creatinine 0.93, Estim Creat Clear Calc 132.98, Est GFR (MDRD) Af Amer 129, Est GFR (MDRD) Non-Af 106, BUN/Creatinine Ratio 12.9, G lucose 368 H, Calcium 8.0 L 06/11/24 05:50: Sodium 136, Potassium 3.5, Chloride 107, Carbon Dioxide 22.0, Anion Gap 7, BUN 11, Creatinine 0.62 L, Estim Creat Clear Calc 199.47, Est GFR (MDRD) Af Amer 206, Est GFR (MDRD) Non-Af 171, BUN/Creatinine Ratio 17.9, G lucose 307 H, Calcium 7.9 L 06/11/24 11:08: POC Glucose 219 H D/C Instructions Discharge Diet: Carb Control Diet Meaningful Use Info Meaningful Use Meaningful Use Diagnoses (Choose all that apply): None applicable Ischemic Stroke Statin Dosing Therapy Reference: STATIN DOSE THERAPY REFERENCE: * Patients > 75 years receive moderate or high dose statin therapy. * Patients 75 years or YOUNGER should receive HIGH intensity statin dose unless contraindicated. You will be required to document reason for non-treatment if statin daily dose does not meet guidelines. HIGH DOSE STATIN THERAPY DAILY Atorvastatin > than or = to 40 mg Rosuvastatin > than or = to 20 mg Amlodipine + Atorvastatin > than or = to 2.5/40 mg Ezetimibe + Simvastatin 10/80 mg Simvastatin 80mg Discharge Plan Admission Admit Date/Time: 06/10/24 03:47 Primary Reason for Your Visit: Elevated glucose and agitation Attending Provider: Munira Cash Primary Care Provider: Care Physician,No Primary Consulting Providers: Amberly Brennan; Chintan Brito Instructions Patient Instructions: Diabetes and Drinking Alcohol, Blood Sugar Check Steps, Diabetes and Sensitive Topics Additional Instructions / Restrictions: DISCHARGE INSTRUCTIONS PLEASE READ *Please take this with you to your next doctors appointment* -You will use 10 units of long-acting insulin glargine daily -You will use sliding scale short acting insulin with meals and at bedtime -Sliding scale as follows: 150-209 = 3 units 210-259 = 6 units 260-324 = 9 units 325-374 = 12 units 375-409 = 14 units 410-449 = 16 units Greater than 449 please call your physician -It is advised you refrain from using alcohol or any other substances -Please call your primary care provider's office upon discharge to schedule a hospital follow up within 1 week. -For any concerning signs or symptoms please call 911 or proceed to the nearest emergency department Discharge Orders/Prescriptions Prescriptions: New insulin glargine-yfgn 100 unit/mL (3 mL) Insulin Pen 10 unit subcut DAILY 30 Days Qty: 15 0RF insulin lispro [Humalog KwikPen Insulin] 100 unit/mL Insulin Pen See Protocol subcut ACHS Qty: 15 0RF Protocol: 5. Sliding Scale Insulin High Dosing Condition: 150-209 mg/dl = 3 units Condition: 210-259 mg/dl = 6 units Condition: 260-324 mg/dl = 9 units Condition: 325-374 mg/dl = 12 units Condition: 375-409 mg/dl = 14 units Condition: 410-449 mg/dl = 16 units Condition: Greater than 449 call physician Protocol Text: Suggested for: - Patients on Total Daily Insulin Dose of 81-120 units - Very insulin resistant patients HIGH DOSING ALGORITHM Referrals / Follow Up: Care Physician,No Primary [Primary Care Provider] - (You indicated you will be following on Tuesday with a physician in [place], will be important to keep this appointment) Disposition Disposition (needs filled in before D/C Order can be placed): Home, Self Care Charges/Coding Visit Charges Inpatient E&M: [id number] Disch Hosp
[2024-06-11 13:38] VITALS: BP 118/70; PULSE 77; RESP 18; TEMP 37; O2SAT 98
--- NOTE | 2024-06-11 15:43 | PHA.DC.MR.R ---
[facility] has performed discharge medication reconciliation for this patient. Medication education papers prepared, patient discharged before I was able to senior genetic counselor. Medications reviewed. The patient's discharge medication list was reviewed for discrepancies and discrepancies were resolved. Medications at Discharge Home Medications insulin glargine-yfgn 100 unit/mL (3 mL) subcutaneous pen 10 unit (0.1 mL) subcut DAILY 30 days #15 mL 06/11/24 insulin lispro 100 unit/mL subcutaneous pen (Humalog KwikPen (U-100) Insulin) See Protocol subcut ACHS #15 mL 06/11/24
== END 2024-06-11 13:10 | disposition home or self-care (01) | DRG 637 ==
LOC: ED 03:47 → ICU 03:59 → MS3 12:57
PROVIDERS: Internal Medicine; Admitting Provider Family Medicine; Emergency Provider Emergency Medicine; Visit Provider Internal Medicine
DX: E11.10 Type 2 diabetes mellitus with ketoacidosis without coma (principal); G92.8 Other toxic encephalopathy; F29 Unspecified psychosis not due to a substance or known physiological condition; F32.A Depression, unspecified; F10.129 Alcohol abuse with intoxication, unspecified; F17.290 Nicotine dependence, other tobacco product, uncomplicated; F41.9 Anxiety disorder, unspecified; E87.6 Hypokalemia; T42.4X5A Adverse effect of benzodiazepines, initial encounter; T43.595A Adverse effect of other antipsychotics and neuroleptics, initial encounter; Y92.239 Unspecified place in hospital as the place of occurrence of the external cause; Y90.7 Blood alcohol level of 200-239 mg/100 ml; R45.1 Restlessness and agitation; F90.9 Attention-deficit hyperactivity disorder, unspecified type
CPT/HCPCS: 36415; 70450; 71045; 73600; 80048; 80053; 80307; 81001; 82009; 82077; 82803; 82962; 83036; 83735; 83930; 84100; 85025; 93005; 97802; 99285; A4216; J2405; J3486